=== PATIENT | male | born 1970 | race Caucasian/White ===

== ENCOUNTER 2016-08-31 11:38 | Emergency (ER) | payer BC ==
[~2016-08-31 11:38] MED LIST: ACTOS PLUS MET; ADDERALL PO; ADDERALLXR PO; ASPIRIN81 M1 PO; ASPIRIN81 M2 PO; ATORVASTATIN CA40 MG PO; BENTYL20 MG PO; BYETTA10 MCG/0.0 INJ; BYETTA5 MCG/0.02 SQ; CHANTIX; CHRONULAC10 GM/15 M PO; CIPRO PO; CITRATE OF MAG300 ML PO; CLOPIDOGREL75 MG PO; COLACE PO; COMPAZINE10 M1 PO; CYMBALTA30 MG PO; DARVOCET-N 1001 TAB PO; DESYREL50 MG PO; DOCUSATE SODIU100 MG PO; ESCITALOPRAM OX10 MG PO; FLAGYL PO; FLEXERIL PO; FLEXERIL10 M1 PO; FLEXERIL10 MG PO; FLOMAX0.4 M1 DOB; FLOMAX0.4 M1 PO; GLUCOPHAGE XR500 MG PO; GLUCOPHAGE500 M1 PO; GLUCOPHAGE500 MG PO; HYDROCODON-ACE1 EAC2 PO; HYDROCODON-ACE1 EAC9 PO; HYDROCODONE APA PO; IBUPROFEN600 MG PO; IBUPROFEN800 MG PO; JANUMET XR 50-1 EAC1 PO; KEFLEX500 M1 PO; LASIX PO; LASIX20 MG PO; LEXAPRO PO; LIPITOR40 MG PO; LISINOPRIL PO; LISINOPRIL10 MG PO; LISINOPRIL20 MG PO; LOPRESSOR PO; MEDROL PO; METFORMIN; METFORMIN HCL500 M1 PO; METFORMIN PO; METOPROLOL TAR25 MG PO; NEURONTIN300 MG PO; NITROGLYGERIN0.4 MG SL; NITROSTAT0.4 MG SL; NORCO1 TAB 10/3 PO; PERCOCET PO; PHENERGAN25 M1 PO; PHENERGAN25 MG PO; PHENTERMINE; PHENTERMINE H37.5 M1 PO; PHENTERMINE PO; PLAVIX PO; PREDNISONE; PREDNISONE PO; PRINIVIL20 M1 PO; PROAIR HFA8.5 GM INH; PROTONIX PO; SKELAXIN PO; TOPAMAX PO; TOPIRAMATE50 MG PO; TORADOL10 MG PO; TYLOX 5/500 CAP1 CAP PO; VICODIN 5/1 TAB 5/50 PO; VICODIN 5/500 T1 TAB PO; VICODIN ES 7.51 EACH PO; VICODIN PO; VIIBRYD; ZESTRIL10 MG PO; ZOCOR PO; ZOCOR5 MG PO; ZOFRAN PO
== END 2016-08-31 12:12 | disposition home or self-care (01) ==
LOC: SED 11:38
DX: S29.012A Strain of muscle and tendon of back wall of thorax, initial encounter (principal); E11.9 Type 2 diabetes mellitus without complications; G43.909 Migraine, unspecified, not intractable, without status migrainosus; F17.210 Nicotine dependence, cigarettes, uncomplicated; Z98.84 Bariatric surgery status; X58.XXXA Exposure to other specified factors, initial encounter; Y92.9 Unspecified place or not applicable
CPT/HCPCS: 96372; 99283; J2360

== ENCOUNTER 2016-09-20 17:48 | Emergency (ER) | payer BC ==
--- NOTE | ~2016-09-20 | CT2 ---
[facility] A Service of [facility] RADIOLOGY TEXT RESULTS PATIENT: ESTELITA BARRERA LOCATION: [facility] : 72 UNIT #: [id number] AGE: [address]: Edson Zuniga DO SEX: M ORDER DR: [id number] [facility] [address] [place], [place] [address] [id number] MR#: [id number] Acc #: [id number] NAME: ESTELITA BARRERA. : 1970 SEX: M STUDY DATE/TIME: 09/20/2016 20:37 UNIT: [facility] ROOM: STUDY DESCRIPTION: CT Abd and Pelv W Cont Attending Physician: Edson Zuniga D.O. Ordering Physician: Edson Zuniga D.O. Primary Care Physician: Russell Rosado M.D. MEDICAL IMAGING REPORT This report is preliminary unless electronic signature is present EXAM CT abdomen and pelvis with oral and IV contrast HISTORY Abdomen pain for [address] abdomen and pelvis was performed with oral and IV contrast. This CT exam was performed with one or more of the following radiation dose reduction techniques: automatic exposure control, adjustment of mA and/or kV according to patient size, and iterative reconstruction. FINDINGS CT ABDOMEN: Diffuse fatty infiltration of the liver. Laparoscopic gastric band extends about the proximal stomach, just distal to the EG junction. No hepatic mass or biliary dilatation. The gallbladder is contracted. The spleen, pancreas, and adrenal glands are normal. Bilateral renal lobulation could be secondary to parenchymal scarring or could be developmental. Normal appendix. No bowel dilatation. No ascites or inflammatory stranding. No adenopathy. 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 CT PELVIS: No pelvic mass or fluid collections. No adenopathy or ascites. Urinary bladder is unremarkable. 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 IMPRESSION 1. No acute findings. No bowel obstruction. No urinary obstruction. 2. Normal appendix. 3. Fatty infiltration of the liver. [facility] A Service of [facility] RADIOLOGY TEXT RESULTS PATIENT: ESTELITA BARRERA LOCATION: [facility] : 72 UNIT #: [id number] AGE: [address]: Edson Zuniga DO SEX: M ORDER DR: 4. Degenerative changes in the lower lumbar spine. Dictated by... Kelvin Domingo M.D. THIS IS AN ELECTRONICALLY VERIFIED REPORT Kelvin Domingo M.D. at 09/20/2016 10:32 PM DFL/pcl TD: 09/20/2016 22:04 JOB #: [id number] MEDICAL IMAGING REPORT Page 1 of 1 COPY
[2016-09-20 18:37] LABS: BASOPHIL% 0.5 % (0-2.5); EOSINOPHIL# 0.1 X10e3 (0-0.7); EOSINOPHIL% 1.4 % (0.0-7.0); HEMATOCRIT 47.3 % (38.0-50.0); HEMOGLOBIN 15.7 gm/dL (13.0-16.0); LYMPHOCYTE# 1.9 X10e3 (1.0-3.5); LYMPHOCYTE% 21.6 % (17.0-45.0); MEAN CELL VOLUME 87.6 FL (83-96); MEAN CORPUSCULAR HGB CONC 33.2 g/dL (30-36); MEAN PLATELET VOLUME 7.3 FL (6.5-11.5); MONOCYTE# 0.7 X10e3 (0-1.0); MONOCYTE% 7.8 % (3.0-12.0); NEUTROPHIL% 68.7 % (40-75); PLATELET COUNT 201 X10e3 (140-420); RED CELL DISTRIBUTION WIDTH 14.3 % (11.0-15.5); WHITE BLOOD COUNT 8.7 X10e3 (4.0-10.5)
[2016-09-20 18:51] LABS: DIFF IND NO
[2016-09-20 19:15] LABS: ALBUMIN SERUM 3.6 g/dL (3.5-5.0); BILIRUBIN, DIRECT 0.1 mg/dL (0.0-0.2); BILIRUBIN,INDIRECT 0.4 mg/dL (0.0-0.9); BILIRUBIN,TOTAL 0.5 mg/dL (0.2-2.0); BUN/CREATININE RATIO 26.66; CALCIUM SERUM 8.9 mg/dL (8.4-10.2); CREATININE SERUM 0.6 mg/dL (0.6-1.4); GLOM FILT RATE Estimated 122.3 mL/min (>60); POTASSIUM 3.6 mmol/L (3.5-5.1); PROTEIN TOTAL SERUM 7.3 g/dL (6.0-8.3)
[2016-09-20 21:13] LABS: POC - CKMB 1.7 ng/mL (0.0-7.9); POC - TROPONIN <0.05 ng/mL (<=0.05)
[2016-09-20 21:40] LABS: URINE SOURCE CLEAN CATCH
[2016-09-20 21:45] LABS: URINE APPEARANCE CLEAR; URINE BILIRUBIN NEG (NEG); URINE BLOOD NEG (NEG); URINE COLOR YELLOW; URINE GLUCOSE NEG (NEG); URINE KETONE TRACE (NEG); URINE LEUKOCYTE ESTERASE NEG (NEG); URINE NITRATE NEG (NEG); URINE PH 5.5 (5-8); URINE PROTEIN NEG (NEG)
[2016-09-20 21:48] LABS: CULTURE INDICATED? NO
== END 2016-09-20 22:10 | disposition home or self-care (01) ==
LOC: CED 17:48
PROVIDERS: Emergency Medicine
DX: R19.7 Diarrhea, unspecified (principal); R10.9 Unspecified abdominal pain; I10 Essential (primary) hypertension; E78.5 Hyperlipidemia, unspecified; F17.200 Nicotine dependence, unspecified, uncomplicated; J45.909 Unspecified asthma, uncomplicated; Z95.1 Presence of aortocoronary bypass graft
CPT/HCPCS: 36415; 74177; 80048; 80076; 81003; 82553; 83605; 83690; 84484; 85025; 96361; 96374; 96375; 99284; J1170; J2405; Q9967